=== PATIENT | male | born 1935 | race Caucasian/White ===

== ENCOUNTER 2019-03-23 10:12 | Inpatient (IN) | payer MEDICARE, OTHER ==
[~2019-03-23] VITALS: Ht 177.8 cm; Wt 109.0 kg
[~2019-03-23 10:12] MED LIST: AMLO-150 PO; ASPI-515 PO; ATOR40TA PO; CHOL2000 PO; DOXA4TAB3 PO; ERTA1VIA IV; FOLI-17 PO; FURO40TA6 PO; LISI40TA PO; METH2.5T PO; METO50TA82 PO; METOPROLOL PO; OMEP-110 PO; POTA20TA91 PO; PREG75CA PO; SULF500T36 PO; TAMS0.4C2 PO; TRAM50TA2 PO; TRAZ50TA66 PO; [UNRECOGNIZED DRUG - OTHER] EACHEYE
[2019-03-23] MEDS ORDERED: SODIUM CHLORIDE 0.9% 1,000 ML IV ONE (11:01)
--- NOTE | 2019-03-23 11:04 | NUR ---
dr garza spoke with dr marek shearer
[2019-03-23] MEDS ORDERED: LORazepam 2 MG/ML, 1ML ONE (11:08)
[2019-03-23 11:22] LABS: BASOPHILS % (AUTO) 0 % (0-1); EOSINOPHILS # (AUTO) 0.03 x10^3/uL (0-0.4); EOSINOPHILS % (AUTO) 0 % (1-7); LYMPHOCYTES # (AUTO) 0.93 x10^3/uL (1-3.4); LYMPHOCYTES % (AUTO) 9 % (22-44); MD NO; MEAN CORPUSCULAR HEMOGLOBIN 31.4 pg (27.5-34.5); MEAN CORPUSCULAR HGB CONC 32.9 g/dL (33.2-36.2); MEAN CORPUSCULAR VOLUME 95.3 fL (81-97); MEAN PLATELET VOLUME 8.8 fL (7.4-10.4); MONOCYTES # (AUTO) 0.68 x10^3/uL (0.2-0.8); MONOCYTES % (AUTO) 7 % (2-9); NEUTROPHILS # (AUTO) 8.19 x10^3/uL (1.8-6.8); NEUTROPHILS % (AUTO) 83 % (42-75); PLATELET COUNT 171 x10^3/uL (130-400); RED BLOOD COUNT 4.94 x10^6/uL (4.38-5.82); RED CELL DISTRIBUTION WIDTH 14.5 % (9.4-14.8)
[2019-03-23] MEDS ORDERED: SODIUM CHLORIDE FLUSH 10ML SYR IVF ONE ×2 (11:30→12:00)
[2019-03-23] MEDS ORDERED: SODIUM CHLORIDE 0.9% 1,000ML IVBOLUS ONE (11:30)
[2019-03-23 11:36] LABS: INTERNATIONAL NORMALIZED RATIO 1.16 (0.93-1.1); PROTHROMBIN TIME 12.1 Seconds (9.6-11.5)
[2019-03-23 11:37] LABS: CHLORIDE 108 mmol/L (98-107)
--- NOTE | 2019-03-23 11:45 | NUR ---
CRDIOLOGIST IN TO SEE PT TO HAVE PACER PLACE,EMT TODAY CARDIO WILL SCHEDULE PT REMAINS ALERT TO BASE LINE
[2019-03-23 11:47] LABS: ALANINE AMINOTRANSFERASE 31 U/L (12-78); ALBUMIN 3.8 g/dL (3.4-5.0); ALKALINE PHOSPHATASE 85 U/L (45-117); ANION GAP 4 mmol/L (5-15); BILIRUBIN,TOTAL 2.2 mg/dL (0.2-1.0); CALCIUM 9.1 mg/dL (8.5-10.1); CREATININE 1.17 mg/dL (0.7-1.3); TOTAL PROTEIN 6.6 g/dL (6.4-8.2); TROPONIN I 0.016 ng/mL (0.000-0.045)
[2019-03-23] MEDS: SODIUM CHLORIDE 0.9% 1,000 ML IV SCH ×3 (11:47→19:08)
[2019-03-23] MEDS ORDERED: MIDAZOLAM 1 MG/ML, 5ML ONE (11:54)
[2019-03-23] MEDS ORDERED: FENTANYL PF 100 MCG/2ML ONE (11:54)
[2019-03-23] MEDS ORDERED: CEFAZOLIN 1,000 MG ONE (11:55)
[2019-03-23] MEDS ORDERED: LIDOCAINE 2%, 20ML ONE (11:55)
[2019-03-23] MEDS ORDERED: CEFAZOLIN PMX 1GM/50ML 50 ML ONE (11:55)
--- NOTE | 2019-03-23 12:02 | NUR ---
PT TO DISABILITY LIAISON OFFICER AT THIS TIME
--- NOTE | 2019-03-23 12:07 | NUR ---
REPORT CALLED TO CCU ANNE MARIE
[2019-03-23] MEDS ORDERED: HYDROcodone/APAP 5/325 TABLET PO PRN (13:00)
[2019-03-23] MEDS ORDERED: HOLD MEDICATION MC PRN (13:00)
[2019-03-23] MEDS: TAMSULOSIN 0.4 MG CAP.ER.24H PO SCH (15:00)
[2019-03-23] MEDS ORDERED: TRAZODONE 50MG TABLET PO SCH (15:00)
[2019-03-23] MEDS ORDERED: ONDANSETRON 2MG/ML, 2ML IVPush PRN (15:30)
[2019-03-23 15:52] LABS: FREE T4 (FREE THYROXINE) 1.06 ng/dL (0.76-1.46)
[2019-03-23] MEDS: FUROSEMIDE 20 MG TABLET PO SCH (16:00)
[2019-03-23 18:45] VITALS: BP 140/70
[2019-03-23] MEDS: SODIUM CHLORIDE FLUSH 10ML SYR IVF SCH (20:02)
[2019-03-23] MEDS: CEFAZOLIN PMX 1GM/50ML 50 ML IVPB SCH (20:02)
[2019-03-23] MEDS: PREGABALIN 75 MG CAPSULE PO SCH (20:03)
[2019-03-23] MEDS: DOXAZOSIN 2MG TABLET PO SCH (20:03)
[2019-03-24] MEDS: CEFAZOLIN PMX 1GM/50ML 50 ML IVPB SCH ×2 (04:03→11:09)
[2019-03-24 04:21] LABS: BASOPHILS # (AUTO) 0.03 x10^3/uL (0-0.1); BASOPHILS % (AUTO) 0 % (0-1); EOSINOPHILS # (AUTO) 0.16 x10^3/uL (0-0.4); EOSINOPHILS % (AUTO) 2 % (1-7); LYMPHOCYTES # (AUTO) 1.07 x10^3/uL (1-3.4); LYMPHOCYTES % (AUTO) 14 % (22-44); MD NO; MEAN CORPUSCULAR HEMOGLOBIN 31.8 pg (27.5-34.5); MEAN CORPUSCULAR HGB CONC 33.1 g/dL (33.2-36.2); MEAN CORPUSCULAR VOLUME 95.9 fL (81-97); MEAN PLATELET VOLUME 8.6 fL (7.4-10.4); MONOCYTES # (AUTO) 0.77 x10^3/uL (0.2-0.8); MONOCYTES % (AUTO) 10 % (2-9); NEUTROPHILS # (AUTO) 5.83 x10^3/uL (1.8-6.8); NEUTROPHILS % (AUTO) 74 % (42-75); PLATELET COUNT 153 x10^3/uL (130-400); RED BLOOD COUNT 4.78 x10^6/uL (4.38-5.82); RED CELL DISTRIBUTION WIDTH 14.1 % (9.4-14.8)
[2019-03-24 04:32] LABS: ANION GAP 3 mmol/L (5-15); CALCIUM 8.5 mg/dL (8.5-10.1); CHLORIDE 110 mmol/L (98-107)
[2019-03-24 04:36] LABS: CHOL/HDL RATIO 2.2; CHOLESTEROL, TOTAL 87 mg/dL (140-239); CREATININE 1.02 mg/dL (0.7-1.3); HDL CHOL % 46 % (26-37); HDL CHOLESTEROL (DIRECT) 40 mg/dL (40-60); LDL CHOLESTEROL,CALCULATED 34 mg/dL (54-169); LDL/HDL RATIO 0.9 (0.5-3.0); TRIGLYCERIDES 64 mg/dL (50-200); VLDL CHOLESTEROL 13 mg/dL (0-25)
[2019-03-24] MEDS ORDERED: AMLODIPINE 5 MG TABLET PO SCH (09:00)
[2019-03-24] MEDS: ARTIFICIAL TEARS 15 DROP/ML BOTTLE EACHEYE SCH (09:33)
[2019-03-24] MEDS: LISINOPRIL 40 MG TABLET PO SCH (09:34)
[2019-03-24] MEDS: OMEPRAZOLE 20 MG CAPSULE.DR PO SCH (09:34)
[2019-03-24] MEDS: FUROSEMIDE 20 MG TABLET PO SCH (09:34)
[2019-03-24] MEDS: FOLIC ACID 1 MG TABLET PO SCH (09:34)
[2019-03-24] MEDS: SENNA/DOCUSATE TABLET PO SCH (09:35)
[2019-03-24] MEDS: PREGABALIN 75 MG CAPSULE PO SCH ×2 (09:35→22:00)
[2019-03-24] MEDS: TAMSULOSIN 0.4 MG CAP.ER.24H PO SCH (09:35)
[2019-03-24] MEDS: CHOLECALCIFEROL 1,000 UNIT TABLET PO SCH (09:52)
[2019-03-24] MEDS: SODIUM CHLORIDE FLUSH 10ML SYR IVF SCH ×2 (09:52→22:00)
[2019-03-24] MEDS: SODIUM CHLORIDE 0.9% 1,000 ML IV SCH (11:09)
[2019-03-24 12:35] VITALS: BP 133/62
[2019-03-24] MEDS: ENOXAPARIN 40 MG/0.4 ML SQ SCH (16:43)
[2019-03-24 19:40] VITALS: BP 126/72
[2019-03-24] MEDS ORDERED: TRAZODONE 50MG TABLET PO PRN (21:00)
[2019-03-24] MEDS: DOXAZOSIN 2MG TABLET PO SCH (22:00)
[2019-03-24] MEDS: ATORVASTATIN 40 MG TABLET PO SCH (22:00)
[2019-03-25 03:59] VITALS: BP 170/75
[2019-03-25 04:53] LABS: BASOPHILS # (AUTO) 0.02 x10^3/uL (0-0.1); BASOPHILS % (AUTO) 0 % (0-1); EOSINOPHILS # (AUTO) 0.15 x10^3/uL (0-0.4); EOSINOPHILS % (AUTO) 2 % (1-7); LYMPHOCYTES # (AUTO) 1.23 x10^3/uL (1-3.4); LYMPHOCYTES % (AUTO) 14 % (22-44); MD NO; MEAN CORPUSCULAR HEMOGLOBIN 31.3 pg (27.5-34.5); MEAN CORPUSCULAR VOLUME 94.7 fL (81-97); MEAN PLATELET VOLUME 8.7 fL (7.4-10.4); MONOCYTES # (AUTO) 0.91 x10^3/uL (0.2-0.8); MONOCYTES % (AUTO) 10 % (2-9); NEUTROPHILS # (AUTO) 6.73 x10^3/uL (1.8-6.8); NEUTROPHILS % (AUTO) 75 % (42-75); PLATELET COUNT 153 x10^3/uL (130-400); RED BLOOD COUNT 4.75 x10^6/uL (4.38-5.82); RED CELL DISTRIBUTION WIDTH 14.4 % (9.4-14.8)
[2019-03-25 05:04] LABS: ALBUMIN 2.9 g/dL (3.4-5.0); ANION GAP 2 mmol/L (5-15); CALCIUM 8.7 mg/dL (8.5-10.1); CHLORIDE 109 mmol/L (98-107)
[2019-03-25 05:07] LABS: ALANINE AMINOTRANSFERASE 20 U/L (12-78); ALKALINE PHOSPHATASE 79 U/L (45-117); BILIRUBIN,TOTAL 2.3 mg/dL (0.2-1.0); CREATININE 0.95 mg/dL (0.7-1.3); TOTAL PROTEIN 5.7 g/dL (6.4-8.2)
[2019-03-25] MEDS: ARTIFICIAL TEARS 15 DROP/ML BOTTLE EACHEYE SCH (08:03)
[2019-03-25] MEDS: SODIUM CHLORIDE FLUSH 10ML SYR IVF SCH ×2 (08:04→21:00)
[2019-03-25] MEDS: CHOLECALCIFEROL 1,000 UNIT TABLET PO SCH (08:04)
[2019-03-25] MEDS: SENNA/DOCUSATE TABLET PO SCH (08:04)
[2019-03-25] MEDS: OMEPRAZOLE 20 MG CAPSULE.DR PO SCH (08:05)
[2019-03-25] MEDS: AMLODIPINE 5 MG TABLET PO SCH (08:05)
[2019-03-25] MEDS: PREGABALIN 75 MG CAPSULE PO SCH ×2 (08:05→21:59)
[2019-03-25] MEDS: FOLIC ACID 1 MG TABLET PO SCH (08:05)
[2019-03-25] MEDS: TAMSULOSIN 0.4 MG CAP.ER.24H PO SCH (08:05)
[2019-03-25] MEDS: LISINOPRIL 40 MG TABLET PO SCH (08:06)
[2019-03-25 08:38] VITALS: BP 152/68
[2019-03-25 15:02] VITALS: BP 148/70
[2019-03-25] MEDS: ENOXAPARIN 40 MG/0.4 ML SQ SCH (16:27)
[2019-03-25 20:50] VITALS: BP 150/67
[2019-03-25] MEDS: ATORVASTATIN 40 MG TABLET PO SCH (21:59)
[2019-03-25] MEDS: DOXAZOSIN 2MG TABLET PO SCH (22:00)
[2019-03-26 02:20] VITALS: BP 159/82
[2019-03-26 08:15] VITALS: BP 145/62
[2019-03-26] MEDS: ARTIFICIAL TEARS 15 DROP/ML BOTTLE EACHEYE SCH (08:15)
[2019-03-26] MEDS: SENNA/DOCUSATE TABLET PO SCH (08:16)
[2019-03-26] MEDS: PREGABALIN 75 MG CAPSULE PO SCH ×2 (08:16→21:37)
[2019-03-26] MEDS: SODIUM CHLORIDE FLUSH 10ML SYR IVF SCH ×2 (08:16→21:38)
[2019-03-26] MEDS: AMLODIPINE 5 MG TABLET PO SCH (08:16)
[2019-03-26] MEDS: LISINOPRIL 40 MG TABLET PO SCH (08:17)
[2019-03-26] MEDS: OMEPRAZOLE 20 MG CAPSULE.DR PO SCH (08:17)
[2019-03-26] MEDS: CHOLECALCIFEROL 1,000 UNIT TABLET PO SCH (08:17)
[2019-03-26] MEDS: TAMSULOSIN 0.4 MG CAP.ER.24H PO SCH (08:17)
[2019-03-26] MEDS: FOLIC ACID 1 MG TABLET PO SCH (08:17)
[2019-03-26 12:35] VITALS: BP 152/78
[2019-03-26] MEDS: ACETAMINOPHEN 325 MG TABLET PO PRN ×2 (15:38→21:40)
[2019-03-26] MEDS: ENOXAPARIN 40 MG/0.4 ML SQ SCH (16:25)
[2019-03-26 20:46] VITALS: BP 152/76
[2019-03-26 21:36] VITALS: BP 145/87
[2019-03-26] MEDS: ATORVASTATIN 40 MG TABLET PO SCH (21:37)
[2019-03-26] MEDS: DOXAZOSIN 2MG TABLET PO SCH (21:38)
[2019-03-27 02:23] VITALS: BP 144/80
[2019-03-27 07:59] VITALS: BP 141/94
[2019-03-27] MEDS: CHOLECALCIFEROL 1,000 UNIT TABLET PO SCH (10:12)
[2019-03-27] MEDS: FUROSEMIDE 40 MG TABLET PO SCH (10:12)
[2019-03-27] MEDS: OMEPRAZOLE 20 MG CAPSULE.DR PO SCH (10:12)
[2019-03-27] MEDS: AMLODIPINE 5 MG TABLET PO SCH (10:12)
[2019-03-27] MEDS: FOLIC ACID 1 MG TABLET PO SCH (10:12)
[2019-03-27] MEDS: PREGABALIN 75 MG CAPSULE PO SCH ×2 (10:12→21:20)
[2019-03-27] MEDS: LISINOPRIL 40 MG TABLET PO SCH (10:12)
[2019-03-27] MEDS: ARTIFICIAL TEARS 15 DROP/ML BOTTLE EACHEYE SCH (10:13)
[2019-03-27] MEDS: TAMSULOSIN 0.4 MG CAP.ER.24H PO SCH (10:13)
[2019-03-27] MEDS: SODIUM CHLORIDE FLUSH 10ML SYR IVF SCH ×2 (10:13→21:21)
[2019-03-27] MEDS: SENNA/DOCUSATE TABLET PO SCH (10:15)
[2019-03-27 14:00] VITALS: BP 129/74
[2019-03-27] MEDS: ENOXAPARIN 40 MG/0.4 ML SQ SCH (17:51)
[2019-03-27 21:11] VITALS: BP_SYST 161; BP_SYST 179; BP_DIAS 63; BP_DIAS 65
[2019-03-27] MEDS: ATORVASTATIN 40 MG TABLET PO SCH (21:20)
[2019-03-27] MEDS: DOXAZOSIN 2MG TABLET PO SCH (21:20)
[2019-03-27] MEDS: ACETAMINOPHEN 325 MG TABLET PO PRN (21:21)
[2019-03-27 22:30] VITALS: BP 129/61
[2019-03-28 07:51] VITALS: BP 128/67
[2019-03-28 07:51] LABS: BASOPHILS # (AUTO) 0.01 x10^3/uL (0-0.1); BASOPHILS % (AUTO) 0 % (0-1); EOSINOPHILS # (AUTO) 0.16 x10^3/uL (0-0.4); EOSINOPHILS % (AUTO) 3 % (1-7); LYMPHOCYTES # (AUTO) 1.36 x10^3/uL (1-3.4); LYMPHOCYTES % (AUTO) 21 % (22-44); MD NO; MEAN CORPUSCULAR HGB CONC 32.8 g/dL (33.2-36.2); MEAN CORPUSCULAR VOLUME 94.5 fL (81-97); MONOCYTES # (AUTO) 0.55 x10^3/uL (0.2-0.8); MONOCYTES % (AUTO) 9 % (2-9); NEUTROPHILS # (AUTO) 4.36 x10^3/uL (1.8-6.8); NEUTROPHILS % (AUTO) 68 % (42-75); PLATELET COUNT 155 x10^3/uL (130-400); RED BLOOD COUNT 4.69 x10^6/uL (4.38-5.82); RED CELL DISTRIBUTION WIDTH 14.7 % (9.4-14.8)
[2019-03-28 08:03] LABS: CALCIUM 8.8 mg/dL (8.5-10.1); CHLORIDE 108 mmol/L (98-107); CREATININE 1.03 mg/dL (0.7-1.3)
[2019-03-28 08:19] LABS: ANION GAP 2 mmol/L (5-15)
[2019-03-28] MEDS: PREGABALIN 75 MG CAPSULE PO SCH (08:54)
[2019-03-28] MEDS: CHOLECALCIFEROL 1,000 UNIT TABLET PO SCH (08:54)
[2019-03-28] MEDS: OMEPRAZOLE 20 MG CAPSULE.DR PO SCH (08:54)
[2019-03-28] MEDS: AMLODIPINE 5 MG TABLET PO SCH (08:54)
[2019-03-28] MEDS: TAMSULOSIN 0.4 MG CAP.ER.24H PO SCH (08:54)
[2019-03-28] MEDS: LISINOPRIL 40 MG TABLET PO SCH (08:54)
[2019-03-28] MEDS: FUROSEMIDE 40 MG TABLET PO SCH (08:55)
[2019-03-28] MEDS: SODIUM CHLORIDE FLUSH 10ML SYR IVF SCH (08:55)
[2019-03-28] MEDS: FOLIC ACID 1 MG TABLET PO SCH (08:55)
[2019-03-28] MEDS: ARTIFICIAL TEARS 15 DROP/ML BOTTLE EACHEYE SCH (08:55)
[2019-03-28] MEDS: SENNA/DOCUSATE TABLET PO SCH (08:59)
[2019-03-28] MEDS ORDERED: POTASSIUM CHLORIDE 20 MEQ TAB.ER.PRT PO ONE (10:00)
[2019-03-28] MEDS ORDERED: AMLO-150 PO ×2 (10:04)
[2019-03-28] MEDS ORDERED: FURO40TA6 PO (10:04)
[2019-03-28] MEDS ORDERED: METO-93 PO (12:41)
[2019-03-28] MEDS ORDERED: AMLO5TAB4 PO (12:42)
[2019-03-28] MEDS ORDERED: METOPROLOL SUCCINATE 50 MG TAB.ER.24H PO SCH (18:00)
[2019-03-29] MEDS ORDERED: AMLODIPINE 5 MG TABLET PO SCH (09:00)
== END 2019-03-28 15:00 | disposition home or self-care (01) | DRG 242 ==
LOC: ED 12:00 → CCU 13:27 → 5SO 03-24 12:47 → DCLOUNGE 03-28 14:42
PROVIDERS: ADMIT Hospitalist; ATTEND Internal Medicine
PROC: 02H63JZ Insertion of Pacemaker Lead into Right Atrium, Percutaneous Approach (ICD-10-PCS; principal; 2019-03-23)
PROC: 02HK3JZ Insertion of Pacemaker Lead into Right Ventricle, Percutaneous Approach (ICD-10-PCS; 2019-03-23)
PROC: 0JH606Z Insertion of Pacemaker, Dual Chamber into Chest Subcutaneous Tissue and Fascia, Open Approach (ICD-10-PCS; 2019-03-23)
DX: I44.2 Atrioventricular block, complete (principal); J96.01 Acute respiratory failure with hypoxia; E55.9 Vitamin D deficiency, unspecified; E78.00 Pure hypercholesterolemia, unspecified; E78.5 Hyperlipidemia, unspecified; F03.90 Unspecified dementia, unspecified severity, without behavioral disturbance, psychotic disturbance, mood disturbance, and anxiety; G89.29 Other chronic pain; I11.0 Hypertensive heart disease with heart failure; I25.10 Atherosclerotic heart disease of native coronary artery without angina pectoris; I35.0 Nonrheumatic aortic (valve) stenosis; I50.9 Heart failure, unspecified; M06.9 Rheumatoid arthritis, unspecified; M45.9 Ankylosing spondylitis of unspecified sites in spine; N40.0 Benign prostatic hyperplasia without lower urinary tract symptoms; Z82.49 Family history of ischemic heart disease and other diseases of the circulatory system; Z95.5 Presence of coronary angioplasty implant and graft
CPT/HCPCS: 33208; 36415; 71045; 80047; 80048; 80053; 80061; 83735; 83880; 84100; 84439; 84443; 84484; 85025; 85610; 85730; 87081; 93005; 99156; 99157; 99291; C1779; C1785; C1892; G0378; J0690; J1650; J2250; J3010; J7030

== ENCOUNTER 2019-08-11 13:45 | Outpatient (CLI) | payer MEDICARE, OTHER ==
[~2019-08-11 13:45] MED LIST changes: +AMLO5TAB4 PO; +METO-93 PO
== END 2019-08-11 23:59 | disposition home or self-care (01) ==
LOC: CFH 13:45
PROVIDERS: ATTEND Internal Medicine Cardiovascular Disease
DX: I08.3 Combined rheumatic disorders of mitral, aortic and tricuspid valves (principal); I31.3 Pericardial effusion (noninflammatory); I25.10 Atherosclerotic heart disease of native coronary artery without angina pectoris
CPT/HCPCS: 93306